=== PATIENT | male | born 1990 | race Caucasian/White ===

== ENCOUNTER 2020-12-08 11:51 | Emergency (ER) | payer MEDICAID ==
[~2020-12-08] VITALS: Ht 188 cm; Wt 79.4 kg
[2020-12-08 12:44] VITALS: BP 117/81
== END 2020-12-08 16:12 | disposition home or self-care (01) ==
LOC: ER 11:51
DX: K21.9 Gastro-esophageal reflux disease without esophagitis (principal)
CPT/HCPCS: 74176